=== PATIENT | male | born 1980 | race Caucasian/White ===

== ENCOUNTER 2017-03-09 18:43 | Inpatient (IN) | payer BC ==
[2017-03-09 19:39] VITALS: BMI 28.8
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
[2017-03-09] MEDS ORDERED: IBUPROFEN 400 MG TABLET (FP) PO PRN (20:47)
[2017-03-09] MEDS ORDERED: hydrOXYzine PAMOATE 50 MG CAPSULE (FP) PO PRN (20:47)
[2017-03-09] MEDS ORDERED: NICOTINE POLACRILEX 2 MG GUM BC PRN (20:47)
[2017-03-09] MEDS ORDERED: MAGNESIUM HYDROX 2400MG/30ML ORAL SUSPENSION 30 ML CUP PO PRN (20:47)
[2017-03-09] MEDS ORDERED: ACETAMINOPHEN 325 MG TABLET (FP) PO PRN (20:47)
[2017-03-09] MEDS ORDERED: METHADONE HCL 10 MG TABLET (FOR DETOX USE ONLY) PO ONE ×2 (20:47→23:00)
[2017-03-09] MEDS ORDERED: MENTHOL/PHENOL 1 EACH UD MM PRN (20:47)
[2017-03-09] MEDS ORDERED: LOPERAMIDE HCL 2 MG CAPSULE PO PRN (20:47)
[2017-03-09] MEDS ORDERED: P-EPHED 60MG/TRIPROLIDI 2.5MG TABLET PO PRN (20:47)
[2017-03-09] MEDS ORDERED: MAG HYDROX/AL HYDROX/SIMETH 30 ML UNIT-DOSE CUP PO PRN (20:47)
[2017-03-09] MEDS ORDERED: guaiFENesin/D-METHORPHAN HB 10 ML UNIT-DOSE CUPS PO PRN (20:47)
[2017-03-09] MEDS ORDERED: diazePAM 5 MG TABLET PO PRN (20:47)
[2017-03-09] MEDS ORDERED: MAGNESIUM CITRATE 300 ML BOTTLE PO PRN (20:47)
[2017-03-09] MEDS: THIAMINE HCL 100 MG TABLET (FP) PO SCH (22:03)
[2017-03-10 00:20] LABS: URINE APPEARANCE CLOUDY; URINE BILIRUBIN NEGATIVE (NEGATIVE); URINE BLOOD NEGATIVE (NEGATIVE); URINE COLOR DKYELLOW; URINE GLUCOSE (UA) NEGATIVE (NEGATIVE); URINE KETONE NEGATIVE (NEGATIVE); URINE NITRITE NEGATIVE (NEGATIVE); URINE PROTEIN NEGATIVE (NEGATIVE)
[2017-03-10 09:55] LABS: MCH 28.1 pg (25.7-33.7); MCHC 33.5 g/dl (32.0-35.9); MEAN CELL VOLUME 83.9 fl (80-96); MEAN PLT VOLUME 8.6 fl (7.5-11.1); PLATELET COUNT 225 K/MM3 (134-434); RDW 13.7 % (11.9-15.9); WHITE BLOOD COUNT 8.7 K/mm3 (4.0-10.0)
[2017-03-10] MEDS ORDERED: METHADONE HCL 10 MG TABLET (FOR DETOX USE ONLY) PO ONE (10:00)
[2017-03-10 10:07] LABS: ALBUMIN 3.3 g/dl (3.4-5.0); ANION GAP 5 (8-16); CO2 31 mmol/L (21-32)
[2017-03-10 10:10] LABS: ALK PHOS 60 U/L (45-117); BILIRUBIN,TOTAL 0.3 mg/dL (0.2-1.0); CALCIUM 8.7 mg/dL (8.5-10.1); GLUCOSE,RANDOM 87 mg/dL (74-106); SGOT/AST 10 U/L (15-37); SGPT/ALT 17 U/L (12-78); TOT PROT 6.2 g/dl (6.4-8.2)
[2017-03-10 10:53] LABS: URINE LEUK ESTERASE Negative (NEGATIVE)
--- NOTE | 2017-03-10 11:21 | PN ---
BHS COWS - Scale Resting Pulse: 0= [place] 80 or Below Sweatin= Chills/Flushing Restless Observation: 1= Difficult to Sit Still Pupil Size: 0= Normal to Room Light Bone or Joint Aches: 2= Severe Diffuse Aches Runny Nose/ Eye Tearin= None GI Upset > 30mins: 0= None Tremor Observation of Outstretched Hands: 2= Slight Tremor Visible Yawning Observation: 2= >3x During Session Anxiety or Irritability: 2=Irritable/Anxious Goose Flesh Skin: 3=Piloerection COWS Score: 13 BHS Progress Note (SOAP) Subjective: Tremors, Anxious, Fatigue, Body Aches. Objective: PT. A & O X 2 (UNCERTAIN ABOUT CURRENT LOCATION). PT. OBSERVED AMBULATING ON UNIT. NO ACUTE DISTRESS. PT. APPEARS LETHARGIC AND SOMEWHAT CONFUSED WHEN ATTEMPTING TO ORGANIZE CLOTHING AND OBJECTS IN HIS ROOM. 03/10/17 11:19 Vital Signs Temperature 96.4 F L 03/10/17 09:31 Pulse Rate 77 03/10/17 09:31 Respiratory Rate 18 03/10/17 09:31 Blood Pressure 97/57 03/10/17 09:31 O2 Sat by Pulse Oximetry (%) Laboratory Tests 03/09/17 03/10/17 03/10/17 23:26 07:00 07:00 WBC 8.7 RBC 4.50 Hgb 12.7 Hct 37.8 MCV 83.9 MCH 28.1 MCHC 33.5 RDW 13.7 Plt Count 225 MPV 8.6 Sodium 136 Potassium 4.1 Chloride 100 Carbon Dioxide 31 Anion Gap 5 L BUN 9 Creatinine 1.0 Creat Clearance w eGFR > 60 Random Glucose 87 Calcium 8.7 Total Bilirubin 0.3 AST 10 L ALT 17 Alkaline Phosphatase 60 Total Protein 6.2 L Albumin 3.3 L Urine Color Dkyellow Urine Appearance Cloudy Urine pH 5.0 Ur Specific [place] 1.028 Urine Protein Negative Urine Glucose (UA) Negative Urine Ketones Negative Urine Blood Negative Urine Nitrite Negative Urine Bilirubin Negative Urine Urobilinogen 2.0 Ur Leukocyte Esterase Negative LABS NOTED. Assessment: 03/10/17 11:20 WITHDRAWAL SYMPTOMS. Plan: CONTINUE DETOX. INCREASE DAILY PO FLUID INTAKE. AMMONIA LEVEL ORDERED. DAILY DOSE OF DETOX METHADONE TO BE HELD FOR TIME BEING. PATIENT TO HAVE PSYCH CONSULT WITH Clark [employer] PSYCH. BODY AND FENDER WORKER, ORDERED.
--- NOTE | 2017-03-10 11:30 | CONSULT ---
[facility] Psychiatric Consult - Data Date of interview: 03/10/17 Admission source: [facility] Identifying data: Pt. is a 36 year old male, single with 3 children currently living with his aunt. Pt. admitted to for detoxifiaction of heroin, cocaine, xanax and oxycodone dependence. Substance Abuse History: Xanax- 8-10 mg daily. Last used 03/09/17. Heroin- "recently used 1- 1/2 bundle of heroin". Oxycodone- Reports using 30mg but "only on weekends". Cocaine- Begun using approximately 2 years ago. Reports using $80-$100 daily. Last used 03/08/2017. Pt. minimizing drug use. Medical History: Pt. denies. Psychiatric History: As per chart patient has a history of bipolar disorder but denied having a psychatric diagnosis to handbook writer. Physical/Sexual Abuse/Trauma History: Pt. denies. Mental Status Exam - Mental Status Exam Alert and Oriented to: Time (able to answer questions but remains slightly sedated throughout interview. ), Place, Person Cognitive Function: Fair (Pt. currently slightly sedated and lethargic but able to answer some questions. ) Patient Appearance: Well Groomed Mood: Withdrawn Affect: Mood Congruent Patient Behavior: Fatigued (Pt. presents as fatigue, sedated and lethargic. ) Speech Pattern: Delayed, Slurred Voice Loudness: Moderately Soft/Quiet Thought Process: Goal Oriented Thought Disorder: Not Present Hallucinations: Denies Suicidal Ideation: Denies Homicidal Ideation: Denies Insight/Judgement: Fair Sleep: Well Appetite: Good Muscle strength/Tone: Normal Gait/Station: Other (Patient's gait is unsteady secondary to sedation.) Psychiatric Findings - Problem List ([place] 1, 2,3) (1) Opioid dependence with withdrawal Current Visit: Yes Status: Acute (2) Sedative, hypnotic or anxiolytic dependence with withdrawal, uncomplicated Current Visit: Yes Status: Acute (3) Cocaine dependence, uncomplicated Current Visit: Yes Status: Chronic (4) Nicotine dependence Current Visit: Yes Status: Chronic (5) Substance induced mood disorder Current Visit: Yes Status: Acute - Initial Treatment Plan Initial Treatment Plan: Pscyhoeducation provided. Chart reviewed. Psychotrophic medications not needed at this time. Will continue to monitor.
[2017-03-10] MEDS ORDERED: PNEUMOC 13-VAL CONJ-DIP CRM/PF 0.5 ML DISP.SYRIN IM ONE (12:00)
[2017-03-10] MEDS ORDERED: PNEUMOCOCCAL 23 VACCINE 0.5 ML VIAL IM ONE (12:00)
[2017-03-10] MEDS ORDERED: FLU VACCINE QUAD 60 MCG/0.5 ML (MDV 17-18) IM ONE (12:00)
[2017-03-10 12:31] LABS: HIV 1 & 2 AB NEGATIVE; HIV 1 AGp24 NEGATIVE
--- NOTE | 2017-03-10 12:59 | EKG ---
Test Reason : Blood Pressure : / mmHG Vent. Rate : 070 BPM Atrial Rate : 070 BPM P-R Int : 154 ms QRS Dur : 102 ms QT Int : 412 ms P-R-T Axes : 041 047 045 degrees QTc Int : 444 ms NORMAL SINUS RHYTHM NORMAL ECG NO PREVIOUS ECGS AVAILABLE Confirmed by WINSOME ROGERS MD ([id number]) on 03/10/2017 12:59:42 PM Referred By: AVTAR CHANDLER Confirmed By:WINSOME ROGERS MD
[2017-03-10] MEDS: NICOTINE 14 MG/24 HOURS TOPICAL PATCH TD SCH (13:18)
[2017-03-10] MEDS: PRENATAL VITAMINS W/ FOLIC ACID TABLET (FP) PO SCH (13:18)
--- NOTE | 2017-03-10 15:17 | PN ---
BHS Progress Note Note: Lactulose level: 89.66. Start Lactulose, 20 grams TID. RE-Check Ammonia level on 03/12/2017. Clark Smith PRESCRIPTION CLERK [employer]ENSES
[2017-03-10] MEDS: LACTULOSE 20 GM/30 ML UDC (FOR ORAL USE ONLY) PO SCH ×2 (16:11→23:13)
[2017-03-10] MEDS: THIAMINE HCL 100 MG TABLET (FP) PO SCH (23:13)
[2017-03-11] MEDS: LACTULOSE 20 GM/30 ML UDC (FOR ORAL USE ONLY) PO SCH ×3 (06:00→22:26)
[2017-03-11] MEDS ORDERED: METHADONE HCL 5 MG TABLET (FOR DETOX USE ONLY) PO ONE (10:00)
[2017-03-11] MEDS: NICOTINE 14 MG/24 HOURS TOPICAL PATCH TD SCH (11:02)
[2017-03-11] MEDS: PRENATAL VITAMINS W/ FOLIC ACID TABLET (FP) PO SCH (11:02)
[2017-03-11] MEDS ORDERED: FLU VACCINE QUAD 60 MCG/0.5 ML (MDV 17-18) IM ONE (12:00)
[2017-03-11] MEDS ORDERED: PNEUMOCOCCAL 23 VACCINE 0.5 ML VIAL IM ONE (12:00)
--- NOTE | 2017-03-11 12:39 | PN ---
S COWS - Scale Resting Pulse: 0= [place] 80 or Below Sweatin=Flushed/Facial Moisture Restless Observation: 0= Sits Still Pupil Size: 0= Normal to Room Light Bone or Joint Aches: 2= Severe Diffuse Aches Runny Nose/ Eye Tearin= Nasal Congestion GI Upset > 30mins: 1= Stomach Cramp Tremor Observation of Outstretched Hands: 2= Slight Tremor Visible Yawning Observation: 2= >3x During Session Anxiety or Irritability: 2=Irritable/Anxious Goose Flesh Skin: 0=Smooth Skin COWS Score: 12 S Progress Note (SOAP) Subjective: Sweating, Fatigue, Body Aches, Anxious. Objective: PT. A & O X 3. NO ACUTE DISTRESS. 03/11/17 12:36 Vital Signs Temperature 95.7 F L 03/11/17 12:12 Pulse Rate 57 L 03/11/17 12:12 Respiratory Rate 16 03/11/17 12:12 Blood Pressure 102/64 03/11/17 12:12 O2 Sat by Pulse Oximetry (%) Laboratory Tests 03/09/17 03/10/17 03/10/17 23:26 07:00 07:00 WBC 8.7 RBC 4.50 Hgb 12.7 Hct 37.8 MCV 83.9 MCH 28.1 MCHC 33.5 RDW 13.7 Plt Count 225 MPV 8.6 Sodium Potassium Chloride Carbon Dioxide Anion Gap BUN Creatinine Creat Clearance w eGFR Random Glucose Calcium Total Bilirubin AST ALT Alkaline Phosphatase Ammonia Total Protein Albumin Urine Color Dkyellow Urine Appearance Cloudy Urine pH 5.0 Ur Specific [place] 1.028 Urine Protein Negative Urine Glucose (UA) Negative Urine Ketones Negative Urine Blood Negative Urine Nitrite Negative Urine Bilirubin Negative Urine Urobilinogen 2.0 Ur Leukocyte Esterase Negative RPR Titer Hepatitis C Antibody HIV 1&2 Antibody Screen Negative HIV P24 Antigen Negative 03/10/17 03/10/17 03/10/17 07:00 07:00 07:00 WBC RBC Hgb Hct MCV MCH MCHC RDW Plt Count MPV Sodium 136 Potassium 4.1 Chloride 100 Carbon Dioxide 31 Anion Gap 5 L BUN 9 Creatinine 1.0 Creat Clearance w eGFR > 60 Random Glucose 87 Calcium 8.7 Total Bilirubin 0.3 AST 10 L ALT 17 Alkaline Phosphatase 60 Ammonia Total Protein 6.2 L Albumin 3.3 L Urine Color Urine Appearance Urine pH Ur Specific [place] Urine Protein Urine Glucose (UA) Urine Ketones Urine Blood Urine Nitrite Urine Bilirubin Urine Urobilinogen Ur Leukocyte Esterase RPR Titer Nonreactive Hepatitis C Antibody <0.1 HIV 1&2 Antibody Screen HIV P24 Antigen 03/10/17 10:50 WBC RBC Hgb Hct MCV MCH MCHC RDW Plt Count MPV Sodium Potassium Chloride Carbon Dioxide Anion Gap BUN Creatinine Creat Clearance w eGFR Random Glucose Calcium Total Bilirubin AST ALT Alkaline Phosphatase Ammonia 89.66 H Total Protein Albumin Urine Color Urine Appearance Urine pH Ur Specific [place] Urine Protein Urine Glucose (UA) Urine Ketones Urine Blood Urine Nitrite Urine Bilirubin Urine Urobilinogen Ur Leukocyte Esterase RPR Titer Hepatitis C Antibody HIV 1&2 Antibody Screen HIV P24 Antigen LABS NOTED. Assessment: 03/11/17 12:37 WITHDRAWAL SYMPTOMS. HYPERAMMONEMIA. 03/11/17 12:38 Plan: CONTINUE DETOX. CONTINUE LACTULOSE, 20 G PO TID. RE-CHECK AMMONIA LEVEL TOMORROW AM. INCREASE DAILY PO FLUID INTAKE. CONTINUE TO ASSESS VS Q 2 HOURS.
[2017-03-11] MEDS: THIAMINE HCL 100 MG TABLET (FP) PO SCH (22:26)
[2017-03-12] MEDS: LACTULOSE 20 GM/30 ML UDC (FOR ORAL USE ONLY) PO SCH ×3 (06:23→21:17)
[2017-03-12] MEDS ORDERED: METHADONE HCL 5 MG TABLET (FOR DETOX USE ONLY) PO ONE (10:00)
[2017-03-12] MEDS: PRENATAL VITAMINS W/ FOLIC ACID TABLET (FP) PO SCH (10:38)
[2017-03-12] MEDS: NICOTINE 14 MG/24 HOURS TOPICAL PATCH TD SCH (10:38)
--- NOTE | 2017-03-12 16:54 | PN ---
S Progress Note (SOAP) Subjective: Anxious, Fatigue, Sweating. Objective: PT. A & O X 3, OBSERVED AMBULATING ON UNIT. NO ACUTE DISTRESS. 03/12/17 16:51 Vital Signs Temperature 96.8 F L 03/12/17 13:28 Pulse Rate 52 L 03/12/17 13:28 Respiratory Rate 18 03/12/17 13:28 Blood Pressure 105/60 03/12/17 13:28 O2 Sat by Pulse Oximetry (%) 97 03/11/17 16:13 Laboratory Tests 03/09/17 03/10/17 03/10/17 23:26 07:00 07:00 WBC 8.7 RBC 4.50 Hgb 12.7 Hct 37.8 MCV 83.9 MCH 28.1 MCHC 33.5 RDW 13.7 Plt Count 225 MPV 8.6 Sodium Potassium Chloride Carbon Dioxide Anion Gap BUN Creatinine Creat Clearance w eGFR Random Glucose Calcium Total Bilirubin AST ALT Alkaline Phosphatase Ammonia Total Protein Albumin Urine Color Dkyellow Urine Appearance Cloudy Urine pH 5.0 Ur Specific [place] 1.028 Urine Protein Negative Urine Glucose (UA) Negative Urine Ketones Negative Urine Blood Negative Urine Nitrite Negative Urine Bilirubin Negative Urine Urobilinogen 2.0 Ur Leukocyte Esterase Negative RPR Titer Hepatitis C Antibody HIV 1&2 Antibody Screen Negative HIV P24 Antigen Negative 03/10/17 03/10/17 03/10/17 07:00 07:00 07:00 WBC RBC Hgb Hct MCV MCH MCHC RDW Plt Count MPV Sodium 136 Potassium 4.1 Chloride 100 Carbon Dioxide 31 Anion Gap 5 L BUN 9 Creatinine 1.0 Creat Clearance w eGFR > 60 Random Glucose 87 Calcium 8.7 Total Bilirubin 0.3 AST 10 L ALT 17 Alkaline Phosphatase 60 Ammonia Total Protein 6.2 L Albumin 3.3 L Urine Color Urine Appearance Urine pH Ur Specific [place] Urine Protein Urine Glucose (UA) Urine Ketones Urine Blood Urine Nitrite Urine Bilirubin Urine Urobilinogen Ur Leukocyte Esterase RPR Titer Nonreactive Hepatitis C Antibody <0.1 HIV 1&2 Antibody Screen HIV P24 Antigen 03/10/17 03/12/17 10:50 08:20 WBC RBC Hgb Hct MCV MCH MCHC RDW Plt Count MPV Sodium Potassium Chloride Carbon Dioxide Anion Gap BUN Creatinine Creat Clearance w eGFR Random Glucose Calcium Total Bilirubin AST ALT Alkaline Phosphatase Ammonia 89.66 H 65.86 H Total Protein Albumin Urine Color Urine Appearance Urine pH Ur Specific [place] Urine Protein Urine Glucose (UA) Urine Ketones Urine Blood Urine Nitrite Urine Bilirubin Urine Urobilinogen Ur Leukocyte Esterase RPR Titer Hepatitis C Antibody HIV 1&2 Antibody Screen HIV P24 Antigen LABS NOTED. RESULTS OF REPEAT AMMONIA LEVEL NOTED. 03/12/17 16:54 Assessment: 03/12/17 16:52 WITHDRAWAL SYMPTOMS. Plan: CONTINUE DETOX. RECEIVED REPORT FROM RN THAT PATIENT HAS REFUSED LAST TWO DOSES OF METHADONE. WHEN ASKED, PATIENT UNABLE TO OFFER A REASON WHY. PATIENT ADVISED TO TAKE REMAINDER OF DETOX MEDICATION DOSES PRESCRIBED OVER REMAINING DAYS OF DETOX. PATIENT ALSO ADVISED TO INCREASE DAILY PO FLUID INTAKE. ENCOURAGE AMBULATION.
[2017-03-12] MEDS: THIAMINE HCL 100 MG TABLET (FP) PO SCH (21:17)
[2017-03-13] MEDS: LACTULOSE 20 GM/30 ML UDC (FOR ORAL USE ONLY) PO SCH ×3 (05:38→22:38)
[2017-03-13] MEDS ORDERED: METHADONE HCL 10 MG TABLET (FOR DETOX USE ONLY) PO ONE (10:00)
[2017-03-13] MEDS: PRENATAL VITAMINS W/ FOLIC ACID TABLET (FP) PO SCH (10:32)
[2017-03-13] MEDS: NICOTINE 14 MG/24 HOURS TOPICAL PATCH TD SCH (10:33)
--- NOTE | 2017-03-13 16:08 | PN ---
BHS Progress Note (SOAP) Subjective: Restlessness, body aches, tremor, interrupted sleep Objective: 03/13/17 16:06 Last Vital Signs Temp Pulse Resp BP Pulse Ox 97.7 F 53 L 20 102/68 97 03/13/17 13:22 03/13/17 13:22 03/13/17 13:22 03/13/17 13:22 03/11/17 16:13 Laboratory Tests 03/09/17 03/10/17 03/10/17 23:26 07:00 07:00 WBC 8.7 RBC 4.50 Hgb 12.7 Hct 37.8 MCV 83.9 MCH 28.1 MCHC 33.5 RDW 13.7 Plt Count 225 MPV 8.6 Sodium Potassium Chloride Carbon Dioxide Anion Gap BUN Creatinine Creat Clearance w eGFR Random Glucose Calcium Total Bilirubin AST ALT Alkaline Phosphatase Ammonia Total Protein Albumin Urine Color Dkyellow Urine Appearance Cloudy Urine pH 5.0 Ur Specific [place] 1.028 Urine Protein Negative Urine Glucose (UA) Negative Urine Ketones Negative Urine Blood Negative Urine Nitrite Negative Urine Bilirubin Negative Urine Urobilinogen 2.0 Ur Leukocyte Esterase Negative RPR Titer Hepatitis C Antibody HIV 1&2 Antibody Screen Negative HIV P24 Antigen Negative 03/10/17 03/10/17 03/10/17 07:00 07:00 07:00 WBC RBC Hgb Hct MCV MCH MCHC RDW Plt Count MPV Sodium 136 Potassium 4.1 Chloride 100 Carbon Dioxide 31 Anion Gap 5 L BUN 9 Creatinine 1.0 Creat Clearance w eGFR > 60 Random Glucose 87 Calcium 8.7 Total Bilirubin 0.3 AST 10 L ALT 17 Alkaline Phosphatase 60 Ammonia Total Protein 6.2 L Albumin 3.3 L Urine Color Urine Appearance Urine pH Ur Specific [place] Urine Protein Urine Glucose (UA) Urine Ketones Urine Blood Urine Nitrite Urine Bilirubin Urine Urobilinogen Ur Leukocyte Esterase RPR Titer Nonreactive Hepatitis C Antibody <0.1 HIV 1&2 Antibody Screen HIV P24 Antigen 03/10/17 03/12/17 10:50 08:20 WBC RBC Hgb Hct MCV MCH MCHC RDW Plt Count MPV Sodium Potassium Chloride Carbon Dioxide Anion Gap BUN Creatinine Creat Clearance w eGFR Random Glucose Calcium Total Bilirubin AST ALT Alkaline Phosphatase Ammonia 89.66 H 65.86 H Total Protein Albumin Urine Color Urine Appearance Urine pH Ur Specific [place] Urine Protein Urine Glucose (UA) Urine Ketones Urine Blood Urine Nitrite Urine Bilirubin Urine Urobilinogen Ur Leukocyte Esterase RPR Titer Hepatitis C Antibody HIV 1&2 Antibody Screen HIV P24 Antigen Labs noted Assessment: 03/13/17 16:07 Withdrawal symptoms Plan: Continue detox Encouraged to drink lots of water
[2017-03-13] MEDS: THIAMINE HCL 100 MG TABLET (FP) PO SCH (22:38)
[2017-03-14] MEDS: LACTULOSE 20 GM/30 ML UDC (FOR ORAL USE ONLY) PO SCH (05:47)
[2017-03-14] MEDS ORDERED: METHADONE HCL 5 MG TABLET (FOR DETOX USE ONLY) PO ONE (06:00)
--- NOTE | 2017-03-14 08:29 | DS ---
[facility] Detox Discharge Summary Admission Date: 03/09/17 Discharge Date: 03/14/17 - History Present History: Opioid Dependence, Sedative Dependence Additional Comments: patient going to [facility]care, dehydration on admission Pertinent Past History: depression , anxiety, fatigue, nicotine dependence - Physical Exam Results Vital Signs: Vital Signs Temperature 98.1 F 03/14/17 06:34 Pulse Rate 59 L 03/14/17 06:34 Respiratory Rate 18 03/14/17 06:34 Blood Pressure 104/61 03/14/17 06:34 O2 Sat by Pulse Oximetry (%) 97 03/11/17 16:13 Laboratory Tests 03/09/17 03/10/17 03/10/17 23:26 07:00 07:00 WBC 8.7 RBC 4.50 Hgb 12.7 Hct 37.8 MCV 83.9 MCH 28.1 MCHC 33.5 RDW 13.7 Plt Count 225 MPV 8.6 Sodium Potassium Chloride Carbon Dioxide Anion Gap BUN Creatinine Creat Clearance w eGFR Random Glucose Calcium Total Bilirubin AST ALT Alkaline Phosphatase Ammonia Total Protein Albumin Urine Color Dkyellow Urine Appearance Cloudy Urine pH 5.0 Ur Specific [place] 1.028 Urine Protein Negative Urine Glucose (UA) Negative Urine Ketones Negative Urine Blood Negative Urine Nitrite Negative Urine Bilirubin Negative Urine Urobilinogen 2.0 Ur Leukocyte Esterase Negative RPR Titer Hepatitis C Antibody HIV 1&2 Antibody Screen Negative HIV P24 Antigen Negative 03/10/17 03/10/17 03/10/17 07:00 07:00 07:00 WBC RBC Hgb Hct MCV MCH MCHC RDW Plt Count MPV Sodium 136 Potassium 4.1 Chloride 100 Carbon Dioxide 31 Anion Gap 5 L BUN 9 Creatinine 1.0 Creat Clearance w eGFR > 60 Random Glucose 87 Calcium 8.7 Total Bilirubin 0.3 AST 10 L ALT 17 Alkaline Phosphatase 60 Ammonia Total Protein 6.2 L Albumin 3.3 L Urine Color Urine Appearance Urine pH Ur Specific [place] Urine Protein Urine Glucose (UA) Urine Ketones Urine Blood Urine Nitrite Urine Bilirubin Urine Urobilinogen Ur Leukocyte Esterase RPR Titer Nonreactive Hepatitis C Antibody <0.1 HIV 1&2 Antibody Screen HIV P24 Antigen 03/10/17 03/12/17 10:50 08:20 WBC RBC Hgb Hct MCV MCH MCHC RDW Plt Count MPV Sodium Potassium Chloride Carbon Dioxide Anion Gap BUN Creatinine Creat Clearance w eGFR Random Glucose Calcium Total Bilirubin AST ALT Alkaline Phosphatase Ammonia 89.66 H 65.86 H Total Protein Albumin Urine Color Urine Appearance Urine pH Ur Specific [place] Urine Protein Urine Glucose (UA) Urine Ketones Urine Blood Urine Nitrite Urine Bilirubin Urine Urobilinogen Ur Leukocyte Esterase RPR Titer Hepatitis C Antibody HIV 1&2 Antibody Screen HIV P24 Antigen Pertinent Admission Physical Exam Findings: withdrawwal sx - Treatment Hospital Course: Detox Protocol Followed, Detoxed Safely, Responded well, Discharged Condition Good, Rehab Referral Accepted Patient has Accepted a Rehab Referral to: Yes - Medication Discharge Medications: Ambulatory Orders NK [No Known Home Medication] 03/09/17 - Diagnosis (1) Dehydration Current Visit: Yes Status: Acute (2) Depression Current Visit: Yes Status: Acute (3) Opioid dependence with withdrawal Current Visit: Yes Status: Acute (4) Sedative, hypnotic or anxiolytic dependence with withdrawal, uncomplicated Current Visit: Yes Status: Acute (5) Substance induced mood disorder Current Visit: Yes Status: Acute (6) Cocaine dependence, uncomplicated Current Visit: Yes Status: Chronic (7) Nicotine dependence Current Visit: Yes Status: Chronic - AMA Did Patient Leave Against Medical Advice: No
[2017-03-14 09:59] VITALS: BP 96/64; PULSE 108; TEMP 96
[2017-03-14] MEDS: NICOTINE 14 MG/24 HOURS TOPICAL PATCH TD SCH (10:46)
[2017-03-14] MEDS: PRENATAL VITAMINS W/ FOLIC ACID TABLET (FP) PO SCH (10:46)
== END 2017-03-14 13:00 | disposition home or self-care (01) | DRG 773 ==
LOC: YASAS 18:43 → Y3N 20:36
PROVIDERS: ADMIT Internal Medicine; ATTEND Internal Medicine
PROC: HZ2ZZZZ Detoxification Services for Substance Abuse Treatment (ICD-10-PCS; principal; 2017-03-09)
DX: F11.23 Opioid dependence with withdrawal (principal); F13.230 Sedative, hypnotic or anxiolytic dependence with withdrawal, uncomplicated; F14.20 Cocaine dependence, uncomplicated; F17.210 Nicotine dependence, cigarettes, uncomplicated; F32.9 Major depressive disorder, single episode, unspecified; E87.0 Hyperosmolality and hypernatremia
CPT/HCPCS: 36415; 80053; 81003; 82140; 85027; 86593; 86803; 87389; 93005; 93010